=== PATIENT | female | born 1985 | race Two or more races ===

== ENCOUNTER 2021-11-02 11:37 | Inpatient (IN) | payer OTHER ==
[~2021-11-02] VITALS: Ht 154.9 cm; Wt 2.3 kg
[2021-11-02] MEDS ORDERED: PRENATAL TABLE1 EAC1 PO (13:26)
[2021-11-02] MEDS ORDERED: IRON325 MG PO (13:26)
[2021-11-02] MEDS ORDERED: SYNTHROID175 MCG PO (13:26)
[2021-11-07] MEDS ORDERED: FERROUS GLUCON324 M2 (15:07)
[2021-11-07] MEDS ORDERED: INTEGRA PLUS C1 EAC1 (15:07)
[2021-11-07] MEDS ORDERED: ENALAPRIL MALEAT5 MG (15:08)
[2021-11-07] MEDS ORDERED: SIMVASTATIN40 MG (15:08)
[2021-11-07] MEDS ORDERED: FOLIC ACID1 MG (15:08)
== END 2021-11-09 14:20 | disposition home or self-care (01) | DRG 783 ==
LOC: LDR 11:37 → OB/GYN 11-08 08:52
PROVIDERS: ADMIT Specialist; ATTEND Specialist
PROC: 4A1HXCZ Monitoring of Products of Conception, Cardiac Rate, External Approach (ICD-10-PCS; 2021-11-02)
PROC: BY4FZZZ Ultrasonography of Third Trimester, Single Fetus (ICD-10-PCS; 2021-11-02)
PROC: 0UT70ZZ Resection of Bilateral Fallopian Tubes, Open Approach (ICD-10-PCS; 2021-11-06)
PROC: 10D00Z1 Extraction of Products of Conception, Low, Open Approach (ICD-10-PCS; principal; 2021-11-06 15:00)
DX: O24.414 Gestational diabetes mellitus in pregnancy, insulin controlled (principal); O60.14X0 Preterm labor third trimester with preterm delivery third trimester, not applicable or unspecified; O14.13 Severe pre-eclampsia, third trimester; O99.283 Endocrine, nutritional and metabolic diseases complicating pregnancy, third trimester; O13.3 Gestational [pregnancy-induced] hypertension without significant proteinuria, third trimester; E03.8 Other specified hypothyroidism; O32.2XX0 Maternal care for transverse and oblique lie, not applicable or unspecified; O26.843 Uterine size-date discrepancy, third trimester; O36.8130 Decreased fetal movements, third trimester, not applicable or unspecified; Z3A.34 34 weeks gestation of pregnancy; Z37.0 Single live birth; Z20.822 Contact with and (suspected) exposure to COVID-19; Z30.2 Encounter for sterilization